=== PATIENT | male | born 1950 | race Caucasian/White ===

== ENCOUNTER → 2020-08-07 | Day surgery (SDC) | payer BC, MEDICARE ==
[2020-08-03 11:03] LABS: BASOPHILS % 0.2 % (0.0-1.0); EOSINOPHILS # (AUTO) 0.2 (0.0-0.4); EOSINOPHILS % 3.5 % (0.0-6.0); HEMATOCRIT 40.9 % (38.2-49.6); HEMOGLOBIN 13.5 g/dL (14.0-18.0); LYMPHOCYTES # (AUTO) 1.7 (1.0-3.2); LYMPHOCYTES % 33.1 % (18.0-39.1); MEAN CORPUSCULAR HEMOGLOBIN 26.6 pg (28-32); MEAN CORPUSCULAR VOLUME 80.5 fL (81-99); MONOCYTES # (AUTO) 0.5 (0.2-0.8); MONOCYTES % 9.8 % (4.4-11.3); NEUTROPHILS # (AUTO) 2.7 (2.1-6.9); PLATELET COUNT 173 x10e3/uL (140-360); RED BLOOD COUNT 5.08 x10e6/uL (4.3-5.7); RED CELL DISTRIBUTION WIDTH 14.8 % (11.7-14.4)
[2020-08-03 11:28] LABS: ANION GAP 14.6 mmol/L (8-16); BLOOD UREA NITROGEN 11 mg/dL (7-26); BUN/CREATININE RATIO 10 (6-25); CALCIUM 9.3 mg/dL (8.4-10.2); CARBON DIOXIDE 30 mmol/L (22-29); CHLORIDE 96 mmol/L (98-107); CREATININE, SERUM 1.13 mg/dL (0.72-1.25); EST GLOMERULAR FILTRATION RATE > 60 ML/MIN (60-); GLUCOSE 91 mg/dL (74-118); POTASSIUM 3.6 mmol/L (3.5-5.1); SODIUM 137 mmol/L (136-145)
--- NOTE | 2020-08-03 11:51 | Diagnostic Imaging Report ---
EXAMINATION: CHEST 2 VIEWS INDICATION: ^PRE OP COMPARISON: None FINDINGS: PA and lateral views TUBES and LINES: None. LUNGS: Lungs are well inflated. Lungs are clear. There is no evidence of pneumonia or pulmonary edema. PLEURA: No pleural effusion or pneumothorax. HEART AND MEDIASTINUM: Normal heart size. Tortuous thoracic aorta. BONES AND SOFT TISSUES: No acute osseous lesion. Soft tissues are unremarkable. UPPER ABDOMEN: No free air under the diaphragm. IMPRESSION: No acute thoracic radiographic abnormality. Signed by: Reinier Dueñas MD on 08/03/2020 11:47 AM
[~2020-08-07] MED LIST: BUPIVACAINE 0.25% 30ML SDV INJ ONE; CEFAZOLIN SOD 1 GM/NS 50ML 100 ML IV ONE; CHROMIUM400 MCG PO; DICLOFENAC POTA50 MG PO; FENTANYL CITRATE/PF 100MCG/2 ML INJ ONE; HYDROCHLOROTHIA25 MG PO; LIDOCAINE HCL 2% LOCAL INJ 5 ML SDV VIAL INJ ONE; MIDAZOLAM HCL 2 MG/2 ML VIAL ONE; NORVASC10 MG PO; ONDANSETRON HCL INJ 2MG/ML 2ML 2 MG/ML VIAL ONE; POTASSIUM CHLO20 ME1 PO; PRILOSEC OTC20 MG PO; PROPOFOL IV EMULSION 10 MG/ML 20 ML VIAL ONE; SEVOFLURANE INHAL SOLN 250 ML PEN BTL ONE; ZINC SULFATE220 MG PO
--- NOTE | 2020-08-07 11:09 | Operative Report ---
DATE OF PROCEDURE: 08/07/2020 SURGEON: Tom Benito MD PREOPERATIVE DIAGNOSIS: Recurrent left inguinal hernia. POSTOPERATIVE DIAGNOSIS: Recurrent left inguinal hernia. PREOPERATIVE INDICATION: Treat disease, prevent hernia related complications. PROCEDURE: Open repair of recurrent left [place] [address]. ANESTHESIA: General. ELECTRONIC TEST TECHNICIAN: Bernardo Rossi, surgical 1st senior agricultural assistant (needed due to complexity of case). FLUIDS: As per anesthesia. EBL: 10 mL. DRAINS: None. COMPLICATIONS: None. SPECIMENS: Hernia sac, not sent to pathology. GRAFTS: Medium-sized Bard PerFix mesh plug and patch (polypropylene). FINDINGS: 1. Large indirect inguinal hernia, recurrent. 2. Scar tissue from previous surgery. PROCEDURE IN DETAIL: The patient was brought to the operating room, and was intubated under general endotracheal anesthesia. He was sterilely prepped and draped in the usual fashion. A Bernabe catheter was placed to decompress the bladder. A preprocedure pause was performed identifying the patient, use of perioperative antibiotics, intended procedure, and staff surgeon. The left iliac fossa incision was made along the length of the skin lines. Dissection was carried through the subcutaneous tissues. A superficial epigastric vessel was ligated in continuity with silk suture. We then exposed the external oblique aponeurosis. This was incised along the length of its fibers, making sure not to injure any neurovascular structures below this. I then was able to encircle the cord structures with a Lisa drain being careful not to injure any neurovascular structures or the vas deferens. I then identified and dissected out a large hernia sac which was intimately adherent to the vas as well as the blood vessels of the cord structures. I was then able to reduce the hernia sac into the peritoneal cavity. There was also a component of some omentum which was protruding through the hernia defect. Some of this was excised. I then placed a medium-sized plug through the internal ring and sutured this to the conjoint tendon medially and shelving edge of inguinal ligament laterally using 2-0 Prolene suture in interrupted fashion. I then reinforced the inguinal floor with a patch of mesh. This was 1st secured to the periosteum of the pubic tubercle with 2-0 Prolene suture and then next in interrupted fashion it was secured to the shelving edge of the inguinal ligament as well as the conjoined tendon. I allowed a keyhole passes for the cord structures. We then irrigated the wound. We achieved hemostasis. I closed the external oblique aponeurosis with 2-0 Vicryl suture in a continuous fashion. Karin's fascia was reapproximated with 3-0 Vicryl suture in an interrupted fashion. We then closed the skin with 4-0 Monocryl suture in a subcuticular fashion. Dermabond dressings were applied. A 0.25% bupivacaine was used at the incision site for local anesthesia. The patient tolerated procedure well. Type of wound was type 1, clean. All surgical sponge and instrument counts were correct. MD JESUS ALBERTO Kirby/CHRISSL /[id number]
[2020-08-07 11:35] VITALS: BP 138/84
== END | disposition home or self-care (01) ==
LOC: OR 07:46
PROVIDERS: ATTEND Surgery
DX: K40.91 Unilateral inguinal hernia, without obstruction or gangrene, recurrent (principal); M19.90 Unspecified osteoarthritis, unspecified site; I10 Essential (primary) hypertension; K21.9 Gastro-esophageal reflux disease without esophagitis; Z01.810 Encounter for preprocedural cardiovascular examination; Z01.812 Encounter for preprocedural laboratory examination; Z01.818 Encounter for other preprocedural examination; Z11.59 Encounter for screening for other viral diseases
CPT/HCPCS: 36415; 49520; 71046; 80048; 85025; 93005; C1781; J0690; J2001; J2250; J2405; J2704; J3010; U0002